=== PATIENT | female | born 1965 | race Caucasian/White ===

== ENCOUNTER 2019-03-26 13:30 | Inpatient (IN) ==
[2019-04-25 13:58] LABS: Appearance,Urine CLEAR; Bilirubin,Urine NEG (NEG); Color,Urine STRAW; Glucose,Urine (UA) NEGATIVE (NEG); Ketones,Urine NEG (NEG); Leukocyte Esterase,Urine NEG /uL (NEG); Nitrate,Urine NEG (NEG); Protein,Urine NEG (NEG); Specific Gravity,Urine 1.008 (1.000-1.035); Urine Blood NEG mg/dL (<0.03); Urobilinogen,Urine NEG (NEG)
[2019-04-25 14:49] LABS: Basophils # (Auto) 0 K/mcL (0.0-0.3); Basophils % (Auto) 0.5 % (0.0-2.0); Eosinophils # (Auto) 0.2 K/mcL (0.0-0.7); Eosinophils % (Auto) 2.8 % (0.0-7.0); Hematocrit 38.1 % (36.0-48.0); Hemoglobin 12.8 g/dL (12.0-15.0); Lymphocytes # (Auto) 1.8 K/mcL (1.5-4.8); Lymphocytes % (Auto) 32.8 % (15.5-49.0); Mean Cell Volume 89.9 fL (80.0-100.0); Mean Corpuscular HGB Conc 33.7 g/dL (31.0-36.0); Mean Platelet Volume 9.5 fL (7.4-10.4); Monocytes # (Auto) 0.4 K/mcL (0.1-0.9); Monocytes % (Auto) 7.9 % (1.0-12.0); Platelet Count 218 K/mcL (140-440); RBC 4.23 M/mcL (4.00-5.20); Red Cell Distribution Width 13.5 % (11.5-14.5); WBC 5.6 K/mcL (4.5-11.0)
[2019-04-25 15:03] LABS: Blood Urea Nitrogen 11 mg/dl (6-20); Calcium 9.7 mg/dl (8.6-10.4); Carbon Dioxide 26 mmol/L (22-30); Chloride 101 mmol/L (96-108); Glomerular Filtration Rate 106; Glucose 101 mg/dL (70-105)
[2019-04-25 15:36] LABS: INR 0.9 (0.9-1.1); Prothrombin Time 12.5 sec (11.9-14.5)
[2019-04-30] MEDS ORDERED: SCOPOLAMINE 1 PATCH PATCH TOPICAL PRN (05:00)
[2019-04-30] MEDS ORDERED: IPRATROPIUM/ALBUTEROL 3 ML AMPUL.NEB NEB PRN ×2 (05:00→08:44)
[2019-04-30] MEDS ORDERED: 0.9 % SODIUM CHLORIDE 9 ML, KETOROLAC 30 MG, ROPIVACAINE HCL/PF 49.5 ML, EPINEPHrine 0.... IJ SCH (06:00)
[2019-04-30] MEDS ORDERED: ceFAZolin 2 GM in DEXTROSE 5% IN WATER 50 ML IV SCH (06:00)
[2019-04-30] MEDS ORDERED: PREGABALIN 75 MG CAPSULE PO SCH (06:00)
[2019-04-30] MEDS ORDERED: ACETAMINOPHEN 500 MG TABLET PO SCH (06:00)
[2019-04-30] MEDS ORDERED: oxyCODONE 10 MG TAB.ER.12H PO SCH (06:00)
[2019-04-30] MEDS ORDERED: DEXAMETHASONE 10 MG/ML VIAL IV ONE (07:40)
[2019-04-30] MEDS ORDERED: KETAMINE 100 MG/ML ML IV ONE (07:40)
[2019-04-30] MEDS ORDERED: PHENYLEPHRINE 10 MG/ML VIAL IV ONE (07:40)
[2019-04-30] MEDS ORDERED: TRANEXAMIC ACID 1,000 MG/10 ML VIAL IV ONE (07:40)
[2019-04-30] MEDS ORDERED: PROPOFOL 200 MG/20 ML VIAL IV ONE (07:40)
[2019-04-30] MEDS ORDERED: LIDOCAINE HCL/PF 100 MG/5 ML SYRINGE IV ONE (07:40)
[2019-04-30] MEDS ORDERED: ePHEDrine 50 MG/ML AMPUL IV ONE (07:40)
[2019-04-30] MEDS ORDERED: GENTAMICIN SULFATE 800 MG/20 ML VIAL IR ONE (08:26)
[2019-04-30] MEDS ORDERED: BENZOCAINE/MENTHOL 1 LOZENGE PO PRN ×2 (08:44→09:02)
[2019-04-30] MEDS ORDERED: ONDANSETRON 4 MG/2 ML VIAL IV PRN ×2 (08:44→09:02)
[2019-04-30] MEDS ORDERED: HYDROmorphone 2 MG/ML VIAL IV PRN (08:44)
[2019-04-30] MEDS ORDERED: fentaNYL 100 MCG/2 ML VIAL IV PRN (08:44)
[2019-04-30] MEDS ORDERED: PROMETHAZINE 25 MG/ML VIAL IV PRN (08:44)
[2019-04-30] MEDS ORDERED: LACTATED RINGERS 250 ML IV PRN (08:44)
[2019-04-30] MEDS ORDERED: diphenhydrAMINE 50 MG/ML VIAL IV PRN (08:44)
[2019-04-30] MEDS ORDERED: FLUMAZENIL 0.1 MG/ML ML IV PRN (08:44)
[2019-04-30] MEDS ORDERED: NALOXONE HCL 0.4 MG/ML VIAL IV PRN (08:44)
[2019-04-30] MEDS ORDERED: LACTATED RINGERS 1,000 ML IV SCH (08:45)
[2019-04-30] MEDS ORDERED: BISACODYL 10 MG SUPP.RECT PR PRN (09:02)
[2019-04-30] MEDS ORDERED: HYDROcodone/APAP 10/325MG TABLET PO PRN (09:02)
[2019-04-30] MEDS ORDERED: POLYETHYLENE GLYCOL 3350 17 GM PACKET PO PRN (09:02)
[2019-04-30] MEDS ORDERED: MAGNESIUM HYDROXIDE 30 ML ORAL.SUSP PO PRN (09:02)
[2019-04-30] MEDS ORDERED: TRANEXAMIC ACID 1,000 MG/10 ML VIAL IV SCH (09:02)
[2019-04-30] MEDS ORDERED: FLEETS ADULT ENEMA PR PRN (09:02)
[2019-04-30] MEDS ORDERED: ACETAMINOPHEN 325 MG TABLET PO PRN (09:02)
--- NOTE | 2019-04-30 09:02 | Brief Operative Note ---
Date of procedure: 04/30/19 Pre-op diagnosis: Left hip djd severe Post-op diagnosis: same Procedure: Left carlos cementless Grafts/Implants: Yes Anesthesia: GETA Surgeon: Dre Thomson Battery Vent Plug Inserter: David Sanchez Estimated blood loss (cc): 100 Specimens Removed/Pathology: none sent Condition: stable Disposition: PACU
[2019-04-30] MEDS ORDERED: ALBUTEROL SULFATE 1 PUFF INHALER INH PRN (09:05)
[2019-04-30] MEDS ORDERED: MELOXICAM 7.5 MG TABLET PO PRN (09:05)
[2019-04-30] MEDS ORDERED: NITROGLYCERIN 0.4 MG TAB.SUBL SL PRN (09:05)
[2019-04-30] MEDS ORDERED: SUMAtriptan SUCCINATE 50 MG TABLET PO PRN (09:05)
[2019-04-30] MEDS ORDERED: tiZANidine 4 MG TABLET PO PRN ×2 (09:05→21:00)
--- NOTE | 2019-04-30 09:13 | XRay Report ---
CLINICAL INFORMATION: left total hip COMPARISON: None. FINDINGS: AP film in the OR shows femoral stem template and prosthetic acetabulum to be anatomically aligned. No osseous abnormality. IMPRESSION: OR film shows femoral stem template and prosthetic acetabulum to be anatomically aligned. Interpreted and Authenticated by: Tahir Hernández 04/30/19
[2019-04-30] MEDS: MEPERIDINE 25 MG/ML SYRINGE IV PRN ×2 (09:29→09:34)
--- NOTE | 2019-04-30 09:59 | XRay Report ---
CLINICAL INFORMATION: Post-Op Total Hip COMPARISON: None. FINDINGS: Left total hip prostheses is anatomically aligned. Mild degenerative change in the right hip and both SI joints noted. 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 Interpreted and Authenticated by: Tahir Hernández 04/30/19
[2019-04-30] MEDS: LACTATED RINGERS 1,000 ML IV SCH ×2 (11:04→21:51)
[2019-04-30] MEDS: PRAMIPEXOLE 0.25 MG TABLET PO SCH ×3 (12:01→21:09)
[2019-04-30] MEDS: 0.9 % SODIUM CHLORIDE 10 ML SYRINGE IV SCH ×2 (12:43→21:48)
[2019-04-30] MEDS: KETOROLAC 15 MG/ML VIAL IV PRN ×2 (13:08→23:57)
[2019-04-30] MEDS: METHOCARBAMOL 750 MG TABLET PO SCH ×2 (13:10→21:09)
[2019-04-30] MEDS: HYDROmorphone 2 MG/ML VIAL IV PRN ×3 (13:15→23:53)
--- NOTE | 2019-04-30 13:58 | Operative Note ---
DATE OF OPERATION: 04/30/2019 PREOPERATIVE DIAGNOSIS: Left hip degenerative arthritis, severe. POSTOPERATIVE DIAGNOSIS: Left hip degenerative arthritis, severe. PROCEDURE: Left total hip arthroplasty using cementless components from [facility]. SURGEON: Dre Thomson MD MIX HOUSE OPERATOR: David Sanchez PA-C. This provider's expertise and technical skill were required throughout the case. The OFELIA assisted with preoperative coordination, intraoperative retraction, wound closure, dressing and splint application, as well as postoperative documentation and care coordination. ANESTHESIA: General LMA. COMPLICATIONS: None. ESTIMATED BLOOD LOSS: About 100 mL. DESCRIPTION OF PROCEDURE: The patient was brought to the operating room and put to sleep with general LMA anesthesia. Once asleep, the patient had the left hip confirmed as the operative site, after putting her into position on the table taken to keep the patient in a lateral position for the left hip was up. We identified this and I was able to make an incision of about 4 inches in length. I dissected to the fascial layer and retracted with a Charnley retractor. I released the capsule with the piriformis obturator internus and the capsule was retracted posteriorly. I dislocated the hip superiorly, keeping the quadratus and other musculature intact posteriorly. Once dislocated, we made our neck cut at 34 mm in length. We were able to measure this from the center of hip rotation. We then subluxed the hip anteriorly, reamed up to the size 50 mm and placed the 50 mm cup with a hooded liner, and 36 mm ball. This seemed to fit very nicely and was very stable after placing a 35 mm screw. Once the hip socket was complete, we then prepared the femur. This was broached up to the size 5 stem. This fit very nicely and we and trialed this. This was slightly long with initial x-ray, but then was able to be repositioned with subsequent x-rays. We did have to ream down the canal because of the tightness of the canal and we irrigated and implanted the cementless stem and then we placed a neutral neck length. This fit very nicely-it was very stable up to 90 degrees rotation with full extension and flexion. Leg lengths were equal on the table. We irrigated thoroughly and closed the capsule with #2 Ethibond, #1 Stratafix on the fascial layer, and then Stratafix in the subcutaneous tissue. Adhesive closure was performed on the skin. Sterile bandage was applied. The patient tolerated this well. Blood loss about 100 mL. RBH:con Job ID: [id number] Doc ID: [id number] Dre Thomson MD
[2019-04-30] MEDS: oxyCODONE/APAP 5/325MG TABLET PO PRN ×3 (14:28→23:45)
[2019-04-30] MEDS: ceFAZolin 1 GM VIAL IV SCH (15:21)
[2019-04-30] MEDS: FERROUS SULFATE 325 MG TABLET PO SCH (17:24)
[2019-04-30] MEDS: POTASSIUM CHLORIDE 10 MEQ TABLET PO SCH (17:24)
[2019-04-30] MEDS ORDERED: HYDROmorphone 2 MG/ML VIAL ONE (18:11)
[2019-04-30] MEDS ORDERED: TEMAZEPAM 15 MG CAPSULE PO PRN (21:00)
[2019-04-30] MEDS ORDERED: SENNOSIDES 1 TABLET PO SCH (21:00)
[2019-04-30] MEDS ORDERED: FLUTICASONE PROPIONATE SPRAY.NAS NS PRN (21:00)
[2019-04-30] MEDS ORDERED: ATORVASTATIN 20 MG TABLET PO SCH (21:00)
[2019-04-30] MEDS: ASPIRIN 325 MG ENTERIC COATED TABLET PO SCH (21:10)
[2019-04-30] MEDS: DOCUSATE SODIUM 100 MG CAPSULE PO SCH (21:11)
[2019-04-30] MEDS: PREGABALIN 100 MG CAPSULE PO SCH (21:11)
[2019-05-01] MEDS: ceFAZolin 1 GM VIAL IV SCH (00:02)
[2019-05-01] MEDS: oxyCODONE/APAP 5/325MG TABLET PO PRN ×3 (04:29→11:55)
[2019-05-01] MEDS: 0.9 % SODIUM CHLORIDE 10 ML SYRINGE IV SCH (06:38)
[2019-05-01] MEDS ORDERED: OMEPRAZOLE 20 MG CAPSULE PO SCH (07:30)
--- NOTE | 2019-05-01 07:30 | Orthopedic Progress Note ---
Subjective Patient information: Note initiated : 05/01/19 at 7:29 am Service Date, if different from initiated Date: [] Patient: Summer Mata 53 y/o F admitted on 04/30/19 for Left Total Hip Arthroplasty. Chief Complaint: [Pt is stable this morning on post operative day 1 without any significant concerns or complaints. Patients vital signs have remained stable. Patients dressing is dry and is grossly intact from a neurovascular and motor standpoint. Patients 10 point ROS is otherwise negative. ] Objective Vital signs: Vital Signs Temp Pulse Pulse Resp BP Pulse Ox 05/01/19 06:09 97 05/01/19 03:17 98.3 F 80 16 118/71 97 05/01/19 02:37 95 04/30/19 23:38 98.1 F 93 H 20 143/87 97 04/30/19 19:30 98.0 F 80 16 130/70 04/30/19 16:00 97.6 F 86 18 133/84 95 04/30/19 13:02 98 04/30/19 13:00 98.0 F 102 H 18 123/73 95 04/30/19 12:45 98 H 143/85 97 04/30/19 12:00 104 H 18 133/74 96 04/30/19 11:30 97 H 18 129/81 96 04/30/19 11:00 97 H 18 138/77 97 04/30/19 10:30 89 16 138/71 98 04/30/19 10:15 86 16 130/82 100 04/30/19 10:00 97.2 F 83 16 131/70 98 04/30/19 09:52 97.7 F 86 13 128/64 100 04/30/19 09:39 97.2 F 78 12 103/50 100 04/30/19 09:24 97.7 F 94 H 20 120/62 96 04/30/19 09:19 97 H 12 128/63 100 04/30/19 09:14 87 12 108/53 100 04/30/19 09:09 97.1 F 79 15 113/55 100 Intake and Output 04/30/19 05/01/19 05/01/19 21:59 05:59 13:59 Intake Total 2520 1630 Output Total 1650 1850 500 Balance 870 -220 -500 Intake: IV 1000 Lactated Ringers 1,000 ml @ 100 1000 mls/hr IV .Q10H KIA Rx#: [id number] Oral 1520 1630 Output: Void Amount 1650 1850 500 Other: Meal Lunch Percent of Meal Consumed juice and Feeding Ability Independent Urine Appearance Clear Clear Urine Color Dark Yellow Bright Yellow Urine Odor Normal Normal Weight 184 lb 3.2 oz Intake & Output: Intake & Output 04/30/19 05/01/19 05/01/19 21:59 05:59 13:59 Intake Total 2520 1630 Output Total 1650 1850 500 Balance 870 -220 -500 Weight 184 lb 3.2 oz Intake: IV 1000 Lactated Ringers 1,000 ml @ 100 1000 mls/hr IV .Q10H KIA Rx#: [id number] Oral 1520 1630 Output: Void Amount 1650 1850 500 Other: Meal Lunch Percent of Meal Consumed juice and Feeding Ability Independent Urine Appearance Clear Clear Urine Color Dark Yellow Bright Yellow Urine Odor Normal Normal Incision: Yes healing Incision clean and dry: Yes Dressing: Yes clean Weight bearing status: full Neurological exam IM: Yes motor sensory intact, Yes neurovascular intact Extremities exam IM: Yes Foot pink and warm, Yes neurovascular intact - Labs CBC & BMP: 05/01/19 04:50 04/25/19 11:58 Labs: Orthopedic Labs 04/25/19 11:58 PT 12.5 INR 0.9 APTT 27 05/01/19 04/25/19 04:50 11:58 Hgb 12.8 Hct 32.5 L 38.1 Assessment and Plan (1) Hx of total hip arthroplasty The patient has been educated regarding dressing care, Physical Therapy recommendations, home exercises, restrictions, and follow up appointments. The patient has had all necessary DME prescribed. The patient has remained relatively stable during their hospital course. Leave Dermabond patch intact until followup Status: Acute
--- NOTE | 2019-05-01 07:33 | Discharge Summary ---
Ortho Discharge - BOB - Patient Instructions Diet: Regular Diet Activity: activity as tolerated, weight bearing as tolerated Total Hip Protocol: Follow activity instructions as provided by Physical Therapy. Dressing Care: May shower in 2 days - Problem Maintenance (1) Hx of total hip arthroplasty Status: Acute - Follow Up Plan Follow Up Appointments: David Sanchez PA-C [Physician Reverberatory Furnace Operator] - 05/15/19 10:00 am Disposition: Home, Self-Care Prognosis: Good Rehab Potential: Good I certify that the patient requires SNF services: No Overall status at discharge: patient is progressing back to baseline - Orders For Discharge Prescriptions: Docusate Sodium [Colace] 100 mg PO BID #60 cap Transmission Status: Pending to [facility] #[id number] Aspirin [Ecotrin] 325 mg PO BID #60 tab.ec Transmission Status: Pending to [facility] #[id number] oxyCODONE/APAP [Percocet 5-325 mg] 1 - 2 tab PO Q4HP PRN #75 tab PRN Reason: Pain Level 3-6 Prescription Printed
[2019-05-01] MEDS: HYDROmorphone 2 MG/ML VIAL IV PRN (08:18)
[2019-05-01] MEDS: DOCUSATE SODIUM 100 MG CAPSULE PO SCH (08:56)
[2019-05-01] MEDS: PREGABALIN 100 MG CAPSULE PO SCH (08:56)
[2019-05-01] MEDS: ASPIRIN 325 MG ENTERIC COATED TABLET PO SCH (08:56)
[2019-05-01] MEDS: METHOCARBAMOL 750 MG TABLET PO SCH (08:56)
[2019-05-01] MEDS ORDERED: VERAPAMIL 120 MG TAB.XL.24H PO SCH (09:00)
[2019-05-01] MEDS ORDERED: PRAMIPEXOLE 0.25 MG TABLET PO SCH (09:00)
[2019-05-01] MEDS ORDERED: FUROSEMIDE 20 MG TABLET PO SCH (09:00)
[2019-05-01] MEDS ORDERED: LACTOBACILLUS 1 CAPSULE PO SCH (09:00)
[2019-05-01] MEDS ORDERED: ZINC SULFATE 50 MG CAPSULE PO SCH (09:00)
[2019-05-01] MEDS ORDERED: ASCORBIC ACID 500 MG TABLET PO SCH (09:00)
[2019-05-01] MEDS ORDERED: MULTIVIT,THER IRON,CA,FA & MIN 1 TABLET PO SCH (09:00)
[2019-05-01] MEDS: FERROUS SULFATE 325 MG TABLET PO SCH (09:03)
[2019-05-01] MEDS: POTASSIUM CHLORIDE 10 MEQ TABLET PO SCH (09:03)
[2019-05-01] MEDS: LACTATED RINGERS 1,000 ML IV SCH (09:09)
[2019-05-01] MEDS: PRAMIPEXOLE 0.25 MG TABLET PO SCH (11:56)
== END 2019-05-01 13:35 | disposition home or self-care (01) | DRG 470 ==
LOC: MEDSUR 04-30 05:04
PROVIDERS: ADMIT Orthopaedic Surgery; ATTEND Orthopaedic Surgery